=== PATIENT | male | born 1960 | race Caucasian/White ===

== ENCOUNTER 2017-02-15 06:28 | Observation (INO) | payer OTHER ==
[2017-02-15] MEDS ORDERED: ceFAZolin 2 GM/DEXTROSE 100 ML IV ONE (06:33)
[2017-02-15] MEDS ORDERED: diphenhydrAMINE 25 MG CAP PO ONE (06:33)
[2017-02-15] MEDS ORDERED: NS 1,000 ML IV ONE (06:33)
[2017-02-15] MEDS ORDERED: DIAZEPAM 5 MG TAB PO ONE (06:33)
[2017-02-15] MEDS ORDERED: BACITRACIN IRRIGATION/NS 50,000 UNITS/1,000 ML BTL IRR ONE (06:33)
--- NOTE | 2017-02-15 06:57 | CPEKG ---
Heart Rate: 63 RR Interval: 952 P-R Interval: 168 QRSD Interval: 100 QT Interval: 396 QTC Interval: 406 P [place]: 58 QRS [place]: -2 T Wave [place]: -12 EKG Severity - BORDERLINE ECG - EKG Impression: SINUS RHYTHM EKG Impression: BORDERLINE T ABNORMALITIES, INFERIOR LEADS Electronically Signed By: Akin Worthy 15-Feb-2017 16:23:10
[2017-02-15 07:09] LABS: % IMMATURE GRANULYOCYTES 0.4 % (0.0-1.1); ABSOLUTE IMMATURE GRANULOCYTES 0.02 10^3/uL (0.00-0.10); ADD DIFF? NO; ADD MORPH? NO; ADD SCAN? NO; ATYPICAL LYMPHOCYTE FLAG 10 (0-99); FRAGMENT RBC FLAG 0 (0-99); HEMATOCRIT 46.3 % (40.0-51.0); HEMOGLOBIN 16.2 g/dL (13.7-17.5); LEFT SHIFT FLG 0 (0-99); LIPEMIA HEMOLYSIS FLAG 90 (0-99); MEAN CELL HEMOGLOBIN 30.1 pg (27.9-34.1); MEAN CELL VOLUME 85.9 fL (81.5-99.8); MEAN PLATELET VOLUME 9.9 fL (8.7-11.7); PLATELET CLUMPS FLAG 10 (0-99); PLATELET COUNT 197 10^3/uL (150-400); RED BLOOD CELL COUNT 5.39 10^6/uL (4.40-6.38); RED CELL DISTRIBUTION WIDTH 12.5 % (11.5-15.2)
[2017-02-15 07:18] LABS: INR 0.92 (0.83-1.16); PROTIME(PATIENT) 12.3 SEC (12.0-15.0)
[2017-02-15 07:28] LABS: ANION GAP 12 mEq/L (8-16); CALCIUM 9.6 mg/dL (8.5-10.4); CARBON DIOXIDE 24 mEq/l (22-31); CHLORIDE 108 mEq/L (97-110); CREATININE 1.1 mg/dL (0.7-1.3); GLOMERULAR FILTRATION RATE > 60; GLUCOSE 113 mg/dL (70-100); POTASSIUM 4.5 mEq/L (3.5-5.2); SODIUM 144 mEq/L (134-144)
[2017-02-15] MEDS ORDERED: LIDOCAINE 1% 30 ML SDV ONE (07:44)
[2017-02-15] MEDS ORDERED: fentaNYL 100 MCG/2 ML INJ ONE ×3 (07:45→09:07)
[2017-02-15] MEDS ORDERED: MIDAZOLAM 2 MG/2 ML VIAL ONE ×5 (07:45→09:21)
[2017-02-15] MEDS ORDERED: BUPIVACAINE 0.5% 30 ML SDV ONE (07:45)
[2017-02-15] MEDS ORDERED: LIDO/EPI 1% **for epidural** 30 ML SDV ONE (07:45)
[2017-02-15] MEDS ORDERED: ceFAZolin 2 GM in D5W 100 ML IV ONE (08:00)
[2017-02-15] MEDS ORDERED: IOPAMIDOL (ISOVUE 370) 100 ML BTL IV ONE (08:42)
--- NOTE | 2017-02-15 16:31 | EPPROC ---
Electrophysiology Procedure Note: PROCEDURE PERFORMED: * AV Pacemaker generator change * New RV lead placement INDICATION: Pacemaker generator at EOL Neurocardiogenic syncope with bradycardia which has been resolved with pacemaker. PROCEDURE NOTE: Patient presented to the cardiac catheterization laboratory in a fasting, postabsorptive state. Moderate sedation was administered. The left infraclavicular area was prepped and draped in the usual sterile fashion. Lidocaine plus bupivacaine was used for local anesthesia. Using a combination of blunt and sharp dissection and electrocautery, the dissection was carried down to the prepectoral fascia and the existing pacemaker pocket was opened. The pacemaker generator was disconnected from the RA lead, however the RV lead could not be removed due to malpositioned set screw. After multiple attempts, the lead was broken off and the generator was form the RV lead. Initially left cephalic vein was explored but could not be found. Venogram was performed. Patency noted. Attempts made to access left subclavian vein. After multiple attempts by me and Dr Taylor, the access was obtained but wire passed into collateral branches. Hence another access was obtained which led to the IVC. 8F sheath was placed. RV lead placed. Good numbers were obtained. Lead sutured down. The pacemaker pocket was copiously irrigated with antibiotic solution. The pocket was again inspected for any bleeding. The leads were attached to the pacemaker securely. The pacemaker was inserted into the pocket and secured in place with a nonabsorbable suture. The pacemaker pocket was closed in 3 layers with absorbable monocryl sutures. Appropriate dressing was applied. The patient left the cardiac catheterization laboratory in stable condition. Serial Numbers: * Device [facility] [employer] Assurity 2240 SN [id number] * Atrial Lead [facility] Passive Plus DX SN [id number] * Ventricular Lead [facility] Tendril [id number] Stimulation Thresholds & Impedance Measurements: * Atrial Lead 2mV, 1.3@0.4ms, 583Ohms * Ventricular Lead 11.2mV, 0.8@0.4ms, 801Ohms * [place] Pacing Parameters * Pacing mode DDDR * Lower rate 60 * Upper tracking rate 130 * Upper sensor rate 130
[2017-02-15] MEDS: HYDROCODONE/APAP 5/325 TAB PO PRN ×2 (16:44→21:49)
[2017-02-16 05:05] LABS: % IMMATURE GRANULYOCYTES 0.3 % (0.0-1.1); ABSOLUTE IMMATURE GRANULOCYTES 0.02 10^3/uL (0.00-0.10); ADD DIFF? NO; ADD MORPH? NO; ADD SCAN? NO; ATYPICAL LYMPHOCYTE FLAG 0 (0-99); FRAGMENT RBC FLAG 0 (0-99); HEMATOCRIT 44.7 % (40.0-51.0); HEMOGLOBIN 15.2 g/dL (13.7-17.5); LEFT SHIFT FLG 0 (0-99); LIPEMIA HEMOLYSIS FLAG 90 (0-99); MEAN CELL HEMOGLOBIN 29.7 pg (27.9-34.1); MEAN CELL VOLUME 87.5 fL (81.5-99.8); PLATELET CLUMPS FLAG 0 (0-99); PLATELET COUNT 162 10^3/uL (150-400); RED BLOOD CELL COUNT 5.11 10^6/uL (4.40-6.38); RED CELL DISTRIBUTION WIDTH 12.5 % (11.5-15.2)
[2017-02-16 05:34] LABS: ANION GAP 7 mEq/L (8-16); CALCIUM 9.4 mg/dL (8.5-10.4); CARBON DIOXIDE 28 mEq/l (22-31); CHLORIDE 105 mEq/L (97-110); GLOMERULAR FILTRATION RATE > 60; GLUCOSE 102 mg/dL (70-100); POTASSIUM 4.7 mEq/L (3.5-5.2); SODIUM 140 mEq/L (134-144)
[2017-02-16 07:37] VITALS: BP 117/81; PULSE 63; RESP 15; TEMP 98.4; O2SAT 93
--- NOTE | 2017-02-16 11:36 | GDS ---
[f rep st] DISCHARGE SUMMARY ADMISSION DIAGNOSES: 1. Fractured RV lead. 2. Neurocardiogenic syncope. 3. Pacemaker end of life. DISCHARGE DIAGNOSES: 1. Neurocardiogenic syncope. 2. Status post permanent pacemaker generator replacement with pocket revision. 3. Implanting a new RV lead. PROCEDURES DONE DURING HOSPITALIZATION: 1. Electrocardiogram. 2. AV pacemaker generator change. 3. New RV lead implantation. 4. Chest x-ray. BRIEF HISTORY: Please see H and P. The patient is a 56-year-old male with noted history of neurocardiogenic syncope first diagnosed 15 years ago, in which he had a pacemaker implantation. He was recently seen in the office by Dr. Worthy who reported recent syncopal event 3 weeks ago after finishing a hot shower. It had been over 5 years since he had last seen Cardiology at that time. Device interrogation done during examination showed that the battery in his generator was completely , and it was recommended that he come to the hospital and have a device check done. HOSPITAL COURSE: Patient was admitted through the CVC, prepped for procedure, and taken to the electrophysiology lab by Dr. Lewis. There, he opened patient's pacemaker pocket, removing old generator, he did have difficulty removing old RV lead from the device due to set screw issue and the RV lead had to be cut and a new RV lead to be placed. A new RV lead was implanted without any complications. The new generator attached to leads. The new RV lead and pacemaker are [employer]. Incision was closed, no complications. Patient was transferred to CVC and ultimately to the PCU for overnight observation. Patient reports throughout the night he had some mild discomfort at incision site, but denies of any chest pain, pressure, and lightheadedness. He has been up and walking the unit without any difficulties. Device check done by [employer] rep this morning showing new generator function within normal limits, new RV lead with normal numbers. PHYSICAL EXAMINATION: GENERAL APPEARANCE: Medium build, well-groomed, male. He is alert and oriented to person, place, time, and situation. Appears to be under no acute distress. VITAL SIGNS: Current vital signs are 117/81, heart rate is 63, sinus rhythm on the monitor, respirations 15 , saturating 92% on room air, temperature 36.9 degrees Celsius. HEENT: Head is normocephalic. Lips and tongue are pink and moist with no signs of cyanosis. Conjunctivae pink. NECK: Trachea is midline, +2 carotid pulses bilateral, no auscultated bruits, no jugular vein distention. RESPIRATORY: Lungs clear to auscultation, no rhonchi, rales or wheezes. No accessory muscle use, no intercostal muscle retraction. CARDIAC: Regular rate, regular rhythm, S1, S2, no S3 or S4 noted, rubs, gallops or murmurs. ABDOMEN: Soft, nontender , bowel sounds x4 quadrants, no organomegaly, no palpable masses. SKIN: [place], warm, dry, no cyanosis, no clubbing, no peripheral edema. VASCULAR: +2 carotids bilateral, +2 radials bilateral, +1 to +2 dorsal pedal and posterior tibial pulses bilateral. Pacemaker insertion site, left anterior lateral chest , incision intact with Steri-Strips, no redness, swelling, drainage, ecchymosis or hematoma, dressing change done at this time. NEURO: Cranial nerves 2-12 grossly intact. LABORATORY STUDIES: Drawn today show WBC of 7.42, hemoglobin 15.2, hematocrit of 44.7, platelet count of 162. Sodium of 140, potassium 4.7, chloride 105, CO2 28, BUN 8, creatinine 1.0, glucose 102, calcium 9.4. STUDIES: Electrocardiogram done on admission showed sinus rhythm with leftward axis, nonspecific T-wave abnormalities in inferior leads. Electrophysiology study: As mentioned above, patient's pacemaker and new RV lead are both [employer]. Chest x-ray this morning showed no acute cardiopulmonary process, no signs of pneumothorax. DISCHARGE DISPOSITION: Patient being discharge in stable condition. He is under activity restrictions of not lifting left arm higher than shoulder height for the next week and not lifting more than 10 pounds. He is asked to perform no strenuous activity for the next week. DISCHARGE MEDICATIONS: Please see discharge medication reconciliation sheet, due to the patient's complaint of soreness in his pacemaker insertion site, he has been given a prescription for [place] 5/325 to use for extreme to severe pain , precautions with narcotic medications have been discussed with the patient and not to use with alcohol, and Tylenol precaution. DISCHARGE INSTRUCTIONS: Post pacemaker discharge instructions went over with the patient including monitoring for signs of infection, showering, wound precautions, monitoring for signs of infection, and activity restrictions. At this time, the patient has a followup wound and device check in the next week, and he will have a 1 month followup appointment with Dr. Worthy. At the time of discharge, patient verbalizes understanding all instructions and has no questions. He has been told that if any questions or concerns post discharge, he is to call our office or return to the hospital or seek medical attention. Total time of discharge greater 30 minutes. /[id number]/MODL MTDD
== END 2017-02-16 11:10 | disposition home or self-care (01) ==
LOC: FCATH 06:28 → F2W 09:53
PROVIDERS: ADMIT Internal Medicine Cardiovascular Disease; ATTEND Internal Medicine Cardiovascular Disease
DX: Z45.010 Encounter for checking and testing of cardiac pacemaker pulse generator [battery] (principal); T82.110A Breakdown (mechanical) of cardiac electrode, initial encounter; I49.5 Sick sinus syndrome; R55 Syncope and collapse
CPT/HCPCS: 33207; 33233; 71010; 71020; 93005; G0378; C1785; C1898; J0690; J2250; J3010; Q9967